=== PATIENT | female | born 1965 | race Caucasian/White ===

== ENCOUNTER → 2017-11-30 | Outpatient (CLI) | payer OTHER ==
--- NOTE | 2017-12-04 07:42 | MM ---
Reason for exam: screening (asymptomatic). Last mammogram was performed 6 years and 3 months ago. History: Patient is postmenopausal. Retro-pectoral saline implants in both breasts, 2016. Physical Findings: A clinical breast exam by your physician is recommended on an annual basis and results should be correlated with mammographic findings. MG Screening Mammo Implant/CAD Bilateral CC and MLO view(s) were taken. Prior study comparison: September 09, 2011, CAD bilateral diagnostic mammogram. September 09, 2009, bilateral digital screening mammogram. The breast tissue is heterogeneously dense. This may lower the sensitivity of mammography. Bilateral retropectoral saline implants. Ovoid focal asymmetry 2 o'clock posterior right breast appears new. ASSESSMENT: Incomplete: need additional imaging evaluation, BI-RAD 0 RECOMMENDATION: Special view mammogram of the right breast. If lesion persists on supplemental views, image directed ultrasound is recommended. [facility] will attempt to contact patient to return for supplemental views and ultrasound if indicated.
== END | disposition home or self-care (01) ==
LOC: RADMAMWWP 08:54
PROVIDERS: ATTEND Family Medicine
DX: Z12.31 Encounter for screening mammogram for malignant neoplasm of breast (principal)
CPT/HCPCS: 77067

== ENCOUNTER → 2017-12-06 | Outpatient (CLI) | payer OTHER ==
--- NOTE | 2017-12-06 09:37 | MM ---
Reason for exam: additional evaluation requested from abnormal screening. Last mammogram was performed less than 1 month ago. History: Patient is postmenopausal. Retro-pectoral saline implants in both breasts, 2016. Physical Findings: Nurse did not find any significant physical abnormalities on exam. MG 3D Work Up W/Cad W/Imp RT CC and MLO view(s) were taken of the right breast. Prior study comparison: November 30, 2017, bilateral MG screening mammo implant/CAD. September 09, 2011, CAD bilateral diagnostic mammogram. There are scattered fibroglandular densities. Area disperses on CC compression faintly present adjacent to implant on the left. These results were verbally communicated with the patient and result sheet given to the patient on 12/06/17. ASSESSMENT: Probably benign, BI-RAD 3 RECOMMENDATION: Follow-up diagnostic mammogram of the right breast in 6 months.
== END | disposition home or self-care (01) ==
LOC: RADMAMWWP 06:52
PROVIDERS: ATTEND Family Medicine
DX: R92.8 Other abnormal and inconclusive findings on diagnostic imaging of breast (principal)
CPT/HCPCS: 77065; G0279

== ENCOUNTER → 2018-06-07 | Outpatient (CLI) | payer OTHER ==
--- NOTE | 2018-06-07 10:57 | MM ---
Reason for exam: follow-up at short interval from prior study. Last mammogram was performed 6 months ago. History: Patient is postmenopausal. Retro-pectoral saline implants in both breasts, 2016. Physical Findings: Nurse did not find any significant physical abnormalities on exam. MG 3D Diag Mammo Imp W/Cad RT CC, MLO, and ML view(s) were taken of the right breast. Prior study comparison: December 06, 2017, right breast MG 3d work up w/cad w/imp RT. November 30, 2017, bilateral MG screening mammo implant/CAD. The breast tissue is heterogeneously dense. This may lower the sensitivity of mammography. Finding: There is a faint circumscribed oval mass in the anterior position of the right breast, possible lesion, persists but unchanged from November 2017 mammogram. These results were verbally communicated with the patient and result sheet given to the patient on 06/07/18. ASSESSMENT: Incomplete: need additional imaging evaluation, BI-RAD 0 RECOMMENDATION: Ultrasound of the right breast.
--- NOTE | 2018-06-07 10:58 | USB ---
Reason for exam: additional evaluation requested from abnormal screening. History: Patient is postmenopausal. Retro-pectoral saline implants in both breasts, 2016. US Breast Limited RT Right limited breast ultrasound including focal area of concern, retroareolar and axilla demonstrates a 0.4 x 0.3 x 0.5cm oval lesion too small to characterize at 1 o'clock. These results were verbally communicated with the patient and result sheet given to the patient on 06/07/18. ASSESSMENT: Probably benign, BI-RAD 3 RECOMMENDATION: Follow-up diagnostic mammogram of both breasts in 6 months. Ultrasound of the right breast in 6 months. Back on schedule.
== END ==
LOC: RADMAMWWP 09:24
PROVIDERS: ATTEND Family Medicine
DX: R92.8 Other abnormal and inconclusive findings on diagnostic imaging of breast (principal)
CPT/HCPCS: 77065; 76642; G0279; 77061

== ENCOUNTER → 2019-01-10 | Outpatient (CLI) | payer OTHER ==
--- NOTE | 2019-01-10 14:42 | USB ---
Reason for exam: additional evaluation requested from abnormal screening. History: Patient is postmenopausal. Retro-pectoral saline implants in both breasts, 2016. US Breast RT Right complete breast ultrasound includes all four quadrants, the retroareolar region and axilla. Finding demonstrates a 0.6 x 0.3 x 0.6cm lesion at 1 o'clock. These results were verbally communicated with the patient and result sheet given to the patient on 01/10/19. ASSESSMENT: Benign, BI-RAD 2 RECOMMENDATION: Follow-up diagnostic mammogram and ultrasound of the right breast in 6 months.
--- NOTE | 2019-01-15 14:53 | MM ---
Reason for exam: follow-up at short interval from prior study. Last mammogram was performed 7 months ago. History: Patient is postmenopausal. Retro-pectoral saline implants in both breasts, 2016. Physical Findings: Nurse did not find any significant physical abnormalities on exam. MG 3D Diag Mammo Imp W/Cad CHRISTINE Bilateral CC, MLO, and ID view(s) were taken. Prior study comparison: June 07, 2018, right breast MG 3d diag mammo imp w/cad RT. December 06, 2017, right breast MG 3d work up w/cad w/imp RT. The breast tissue is heterogeneously dense. This may lower the sensitivity of mammography. There is chronic nodularity in the right breast. These results were verbally communicated with the patient and result sheet given to the patient on 01/10/19. ASSESSMENT: Benign, BI-RAD 2 RECOMMENDATION: Follow-up diagnostic mammogram of the right breast in 6 months.
== END ==
LOC: RADMAMWWP 13:44
PROVIDERS: ATTEND Family Medicine
DX: R92.8 Other abnormal and inconclusive findings on diagnostic imaging of breast (principal)
CPT/HCPCS: 77066; 76641; G0279; 77062

== ENCOUNTER → 2019-09-11 | Outpatient (CLI) | payer OTHER ==
--- NOTE | 2019-09-12 13:06 | MM ---
Reason for exam: follow-up at short interval from prior study. Last mammogram was performed 8 months ago. History: Patient is postmenopausal. Retro-pectoral saline implants in both breasts, 2016. Physical Findings: Nurse did not find any significant physical abnormalities on exam. MG 3D Diag Mammo Imp W/Cad RT CC and MLO view(s) were taken of the right breast. Prior study comparison: January 10, 2019, bilateral MG 3d diag mammo imp w/cad CHRISTINE. June 07, 2018, right breast MG 3d diag mammo imp w/cad RT. No significant new findings when compared with previous films. These results were verbally communicated with the patient and result sheet given to the patient on 09/11/19. ASSESSMENT: Benign, BI-RAD 2 RECOMMENDATION: Routine screening mammogram of both breasts in 6 months. Back on schedule.
--- NOTE | 2019-09-12 13:07 | USB ---
Reason for exam: follow-up at short interval from prior study. History: Patient is postmenopausal. Retro-pectoral saline implants in both breasts, 2016. US Breast RT Right complete breast ultrasound includes all four quadrants, the retroareolar region and axilla. Finding demonstrates a 3 x 3 x 4mm oval, cystic lesion at 1 o'clock and a 4mm oval lymph node at the axillary tail. These results were verbally communicated with the patient and result sheet given to the patient on 09/11/19. ASSESSMENT: Benign, BI-RAD 2 RECOMMENDATION: Routine screening mammogram of both breasts in 6 months. Manage on a clinical basis with regard to left breast pain.
== END | disposition home or self-care (01) ==
LOC: RADMAMWWP 13:25
PROVIDERS: ATTEND Family Medicine
DX: R92.8 Other abnormal and inconclusive findings on diagnostic imaging of breast (principal)
CPT/HCPCS: 77065; 76641; G0279; 77061

== ENCOUNTER → 2019-09-24 | Outpatient (CLI) | payer OTHER ==
[2019-09-24 10:18] VITALS: BP 127/70; PULSE 78; RESP 16; TEMP 98.6
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
== END ==
LOC: WWCWWP 09:59
PROVIDERS: ATTEND Obstetrics & Gynecology
DX: Z53.9 Procedure and treatment not carried out, unspecified reason (principal)

== ENCOUNTER → 2019-09-27 | Outpatient (CLI) | payer OTHER ==
--- NOTE | 2019-09-27 08:30 | US ---
EXAMINATION TYPE: US carotid duplex BILAT DATE OF EXAM: 09/27/2019 COMPARISON: NONE CLINICAL HISTORY: R07.89 CHEST PAIN. Baseline. No HTN. EXAM MEASUREMENTS: RIGHT: Peak Systolic Velocity (PSV) cm/sec ----- Right CCA: 101.7 ----- Right ICA: 92.7 ----- Right ECA: 55.9 ICA/CCA ratio: 0.9 RIGHT: End Diastole cm/sec ----- Right CCA: 44.8 ----- Right ICA: 43.5 ----- Right ECA: 10.4 LEFT: Peak Systolic Velocity (PSV) cm/sec ----- Left CCA: 105.3 ----- Left ICA: 107.9 ----- Left ECA: 73.8 ICA/CCA ratio: 1.0 LEFT: End Diastole cm/sec ----- Left CCA: 49.7 ----- Left ICA: 47.1 ----- Left ECA: 13.6 VERTEBRALS (direction of flow): Right Vertebral: Antegrade Left Vertebral: Antegrade Rhythm: Normal No plaque, wall thickening, significant stenosis or elevated velocities visualized. IMPRESSION: Mild degree of grayscale atheromatous plaquing with no sonographically evident hemodyn amically significant stenosis within either visualized carotid arterial system. Criteria for Assigning % of Stenosis / Diameter reduction (Estimation based on the indirect measurements of the internal carotid artery velocities (ICA PSV). 1. Normal (no stenosis)=ICA PSV < 125 cm/s: ratio < 2.0: ICA EDV<40 cm/s. 2. Less than 50% stenosis=ICA PSV < 125 cm/s: ratio < 2.0: ICA EDV<40 cm/s. 3. 50 to 69% stenosis=ICA PSV of 125 to 230 cm/s: ration 2.0 ? 4.0: ICA EDV 40-100 cm/s. 4. Greater than 70% stenosis to near occlusion= ICA PSV > 230 cm/s: ratio > 4.0: ICA EDV > 100 cm/s. 5. Near occlusion= ICA PSV velocities may be low or undetectable: variable ratio and ICA EDV. 6. Total occlusion=unable to detect flow.
--- NOTE | 2019-09-27 10:18 | BD ---
EXAMINATION TYPE: Axial Bone Density DATE OF EXAM: 09/27/2019 COMPARISON: NONE CLINICAL HISTORY: Z 78.0 Height: 5 FT 3 IN Weight: 115 FRAX RISK QUESTIONS: Alcohol (3 or more units per day): NO Family History (Parent hip fracture): NO Glucocorticoids (More than 3mos): NO (Ex: prednisone, prednisolone, methylprednisolone, dexamethasone, and hydrocortisone). History of Fracture in Adulthood: NO Secondary Osteoporosis: 1. Type 1 Diabetes: NO 2. Hyperthyroidism: NO 3. Menopause before 45: NO 4. Malnutrition: NO 5. Chronic liver disease: NO Rheumatoid Arthritis: NO Current Tobacco Use: NO RISK FACTORS HISTORY OF: Active: YES Postmenopausal woman: AGE 47 MEDICATIONS: Additional Medications: CURRENTLY ON ANTIBIOTICS FOR SINUS INF Additional History: HISTORY OF LYME DIEASE EXAM MEASUREMENTS: Bone mineral densitometry was performed using the [employer] System. Bone mineral density as measured about the Lumbar spine is: ----- L1-L4(G/cm2): 1.259 T Score Values are as follows: ----- L2: 0.6 ----- L3: 1.0 ----- L4: 0.9 ----- L1-L4: 0.7 BASELINE Bone mineral density about the R hip (g/cm2): 0.753 Bone mineral density about the L hip (g/cm2): 0.768 T Score values are as follows: -----R Neck: -2.0 -----L Neck: -1.9 -----R Total: -1.6 -----L Total: -1.6 BASELINE IMPRESSION: Osteopenia (T Score between -2.5 and -1). There is slightly increased risk of fracture and the patient may be considered for treatment. Re-Screen 2-5 years. NOTE: T-SCORE=SD OF THE YOUNG ADULT MEAN.
--- NOTE | 2019-10-02 07:17 | EST ---
EXERCISE STRESS AGE: 53 SEX: F HT: 63" WT: 115 PROTOCOL: Stress Test STAGE: 3 DURATION OF EXERCISE: 9:00 HEART RATE REST: 64 BLOOD PRESSURE REST: 105/79 MAXIMUM HEART RATE ACHIEVED: 149 MAXIMUM BLOOD PRESSURE: 141/65 85% MPHR: 141 100% MPHR: 166 METS: 10.3 INDICATIONS: Chest pain. CLINICAL INFORMATION: Baseline EKG revealed normal sinus rhythm without significant ST changes. Patient walked on a standard Bret protocol for a total duration of 9 minutes, achieved a maximal heart rate of 149 beats per minute which is more than 85% of predicted maximum. Developed fatigue and shortness of breath. She did not have any angina or arrhythmia. EKG did not reveal any ST-segment changes to indicate ischemia. This is a negative stress test with fair exercise capacity. FINAL IMPRESSION: 1. Fair exercise capacity. Negative stress test by EKG criteria. 2. Patient did not have any angina or arrhythmia EKG changes to indicate ischemia. MMISISL / ANITAN: [id number] /
== END | disposition home or self-care (01) ==
LOC: RADBDWWP 07:03
PROVIDERS: ATTEND Family Medicine
DX: R07.89 Other chest pain (principal); I65.23 Occlusion and stenosis of bilateral carotid arteries; M85.80 Other specified disorders of bone density and structure, unspecified site; Z78.0 Asymptomatic menopausal state
CPT/HCPCS: 77080; 93017; 93880

== ENCOUNTER → 2020-03-27 | Outpatient (CLI) | payer OTHER ==
--- NOTE | 2020-03-30 10:38 | MM ---
Reason for exam: screening (asymptomatic). Last mammogram was performed 7 months ago. History: Patient is postmenopausal. Retro-pectoral saline implants in both breasts, 2016. Physical Findings: A clinical breast exam by your physician is recommended on an annual basis and results should be correlated with mammographic findings. MG 3D Screen Mammo Imp/Cad Bilateral CC, MLO, and ID view(s) were taken. Prior study comparison: September 11, 2019, right breast MG 3d diag mammo imp w/cad RT. January 10, 2019, bilateral MG 3d diag mammo imp w/cad CHRISTINE. The breast tissue is heterogeneously dense. This may lower the sensitivity of mammography. Stable bilateral implants. No significant changes when compared with prior studies. ASSESSMENT: Benign, BI-RAD 2 RECOMMENDATION: Routine screening mammogram of both breasts in 1 year.
== END | disposition home or self-care (01) ==
LOC: RADMAMWWP 13:33
PROVIDERS: ATTEND Family Medicine
DX: Z12.31 Encounter for screening mammogram for malignant neoplasm of breast (principal)
CPT/HCPCS: 77063; 77067

== ENCOUNTER → 2022-07-01 | Outpatient (CLI) | payer OTHER ==
--- NOTE | 2022-07-04 10:18 | BD ---
EXAMINATION TYPE: Axial Bone Density DATE OF EXAM: 07/01/2022 COMPARISON: 09/27/2019 CLINICAL HISTORY: 56 years old Female. ICD-10 CODE: Z78.0 Asymptomatic menopausal state Height: 63 Weight: 118 FRAX RISK QUESTIONS: Alcohol (3 or more units per day): NO Family History (Parent hip fracture): NO Glucocorticoids (More than 3mos): NO (Ex: prednisone, prednisolone, methylprednisolone, dexamethasone, and hydrocortisone). History of Fracture in Adulthood: NO Secondary Osteoporosis: NO Rheumatoid Arthritis: NO Current Tobacco Use: NO RISK FACTORS HISTORY OF: Family History of Osteoporosis: NO Active: YES Diet low in dairy products/other sources of calcium: YES Postmenopausal woman: YES Take estrogen and/or progesterone medications: NO Lost more than 2 inches in height since high school: NO MEDICATIONS: Additional Medications: YES VIT D EXAM MEASUREMENTS: Bone mineral densitometry was performed using the [employer] System. Bone mineral density as measured about the Lumbar spine is: ----- L1-L4(G/cm2): 1.195 T Score Values are as follows: ----- L1: -0.8 ----- L2: 0.0 ----- L3: 0.4 ----- L4: 0.5 ----- L1-L4: 0.1 Bone mineral density has: Decreased -5.0% since study of: 09/27/2019 Bone mineral density about the R hip (g/cm2): 0.717 Bone mineral density about the L hip (g/cm2): 0.748 T Score values are as follows: -----R Neck: -2.3 -----L Neck: -2.1 -----R Total: -1.9 -----L Total: -1.6 Bone mineral density has: Decreased -2.4% since study of: 09/27/2019 FRAX%s: The graph provided illustrates a 9.0% chance for a major osteoporotic fx and a 1.5% chance fo r the hips probability for fx in 10 years time. IMPRESSION: Osteopenia (T Score between -2.5 and -1). There is slightly increased risk of fracture and the patient may be considered for treatment. Re-Screen 2-5 years. NOTE: T-SCORE=SD OF THE YOUNG ADULT MEAN.
== END | disposition home or self-care (01) ==
LOC: RADMAMWWP 14:21
PROVIDERS: ATTEND Family Medicine
DX: M85.89 Other specified disorders of bone density and structure, multiple sites (principal); Z78.0 Asymptomatic menopausal state
CPT/HCPCS: 77080

== ENCOUNTER 2023-02-24 16:25 | Emergency (ER) | payer OTHER ==
[2023-02-24 16:47] VITALS: RESP 18; TEMP 99.6
--- NOTE | 2023-02-24 17:12 | ED ---
Abdominal Pain HPI - General Chief Complaint: Abdominal Pain Stated Complaint: Vaginal pain Time Seen by Provider: 02/24/23 16:49 Source: patient Mode of arrival: ambulatory - History of Present Illness Initial Comments: 57-year-old female with no significant past medical history presents to ED with chief complaint of pelvic pain. She states that she woke up today with a sudden onset of pain over her pubis with a soft "squishy" mass over it. She states pain is dull in nature however reports upon touching it becomes very sharp. Patient states pain is currently a 5/10 in severity. Pain worse with movements No changes in bowel movements. Patient states a week ago onset of back pain and thought that she may have had a UTI and reports that she has been drinking more water. Reports urinary frequency however no dysuria, no hematuria. Denies vag inal bleeding, vaginal discharge. Patient states that she saw her PCP who advised her to present to the ED for further evaluation. 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 No other complaints - Related Data Home Medications Medication Instructions Recorded Confirmed Cyanocobalamin [Vitamin B-12] 500 mcg PO DAILY 09/24/19 09/24/19 Multivitamin [Multivitamins Adult 1 each PO DAILY 09/24/19 09/24/19 Gummies] Allergies Allergy/AdvReac Type Severity Reaction Status Date / Time codeine AdvReac Nausea Verified 02/24/23 21:50 Review of Systems ROS Statement: Those systems with pertinent positive or pertinent negative responses have been documented in the HPI. ROS Other: All systems not noted in ROS Statement are negative. Past Medical History Past Medical History: Hyperlipidemia Additional Past Medical History / Comment(s): Lines disease in the past. 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 History of Any Multi-Drug Resistant Organisms: None Reported Past Surgical History: Section, Tubal Ligation Additional Past Surgical History / Comment(s): Bilateral saline implants. section for twins. Colonoscopy 2011. Past Psychological History: No Psychological Hx Reported Smoking Status: Former smoker Past Alcohol Use History: Rare Past Drug Use History: None Reported - Past Family History Mother Family Medical History: Congestive Heart Failure (CHF), Coronary Artery Disease (CAD), CVA/TIA Father Family Medical History: Cancer, Coronary Artery Disease (CAD) Additional Family Medical History / Comment(s): Non-Hodgkin's lymphoma and aortic aneurysm. General Exam Limitations: no limitations General appearance: alert, in no apparent distress Head exam: Present: atraumatic, normocephalic Eye exam: Present: normal appearance ENT exam: Present: normal exam Neck exam: Present: normal inspection Respiratory exam: Present: normal lung sounds bilaterally Cardiovascular Exam: Present: regular rate, normal rhythm GI/Abdominal exam: Present: soft (Nontender to palpation. No rebound guarding or rigidity.), normal bowel sounds External exam: Present: other (Soft mass over the left side of the pubis. No overlying skin changes) Back exam: Present: normal inspection Neurological exam: Present: alert, oriented X3 Psychiatric exam: Present: normal affect, normal mood Skin exam: Present: warm, dry Course Vital Signs 02/24/23 02/24/23 16:39 20:48 Temperature 99.6 F Pulse Rate 92 65 Respiratory 18 18 Rate Blood Pressure 135/80 141/79 O2 Sat by Pulse 98 98 Oximetry Medical Decision Making - Medical Decision Making Was pt. sent in by a medical professional or institution (, PA, [employer], urgent care, hospital, or jail...) When possible be specific @ -No Did you speak to anyone other than the patient for history (EMS, parent, family, police, friend...)? What history was obtained from this source @ -No Did you review nursing and triage notes (agree or disagree)? Why? @ -I reviewed and agree with nursing and triage notes Were old charts reviewed (outside hosp., previous admission, EMS record, old EKG, old radiological studies, urgent care reports/EKG's, jail records)? Report findings @ -No old charts were reviewed Differential Diagnosis (chest pain, altered mental status, abdominal pain women, abdominal pain men, vaginal bleeding, weakness, fever, dyspnea, syncope, headache, dizziness, GI bleed, back pain, seizure, CVA, palpatations, mental health, musculoskeletal)? @ -MDM differential abdominal pain women EKG interpreted by me (3pts min.). @ -As above X-rays interpreted by me (1pt min.). @ -None done CT interpreted by me (1pt min.). @ -CT showed inguinal hernia consisting of fat with no bowel U/S interpreted by me (1pt. min.). @ -Pelvic ultrasound showed no acute findings What testing was considered but not performed or refused? (CT, X-rays, U/S, labs)? Why? @ -None What meds were considered but not given or refused? Why? @ -None Did you discuss the management of the patient with other professionals (professionals i.e. , PA, [employer], lab, RT, psych nurse, director of social media marketing, rap artist, teacher, community chest officer, case monitor)? Give summary @ -No Was smoking cessation discussed for >3mins.? @ -No Was critical care preformed (if so, how long)? @ -No Were there social determinants of health that impacted care today? How? (Homelessness, low income, unemployed, alcoholism, drug addiction, transportation, low edu. Level, literacy, decrease access to med. care, half-way, rehab)? @ -No Was there de-escalation of care discussed even if they declined (Discuss DNR or withdrawal of care, Hospice)? DNR status @ -No What co-morbidities impacted this encounter? (DM, HTN, Smoking, COPD, CAD, Cancer, CVA, ARF, Chemo, Hep., AIDS, mental health diagnosis, sleep apnea, morbid obesity)? @ -None Was patient admitted / discharged? Hospital course, mention meds given and route, prescriptions, significant lab abnormalities, going to OR and other pertinent info. @ -Discharge. Laboratory studies unremarkable The CT showed an inguinal hernia measuring approximately 2.9 x 2.2 cm containing small amount of fluid and fat however no bowel. She had hernia reduced at bedside. Will be discharged home with follow-up to surgery. Discussed return cautions with patient who verbalizes agreement. Undiagnosed new problem with uncertain prognosis? @ -No Drug Therapy requiring intensive monitoring for toxicity (Heparin, Nitro, Insulin, Cardizem)? @ -No Were any procedures done? @ -Yes, hernia reduction please see Dr. Resendez's procedure note further details Diagnosis/symptom? @ -Inguinal hernia Acute, or Chronic, or Acute on Chronic? @ -Acute Uncomplicated (without systemic symptoms) or Complicated (systemic symptoms)? @ -Uncomplicated Side effects of treatment? @ -No Exacerbation, Progression, or Severe Exacerbation? @ -No Poses a threat to life or bodily function? How? (Chest pain, [place], [place], pneumonia, PE, COPD, DKA, ARF, appy, cholecystitis, CVA, Diverticulitis, Homicidal, Suicidal, threat to staff... and all critical care pts) @ -Yes, rule out strangulate hernia - Lab Data Result diagrams: 02/24/23 17:27 02/24/23 17:27 Lab Results 02/24/23 02/24/23 02/24/23 Range/Units 17:27 17:27 17:27 WBC 5.6 (3.8-10.6) k/uL RBC 4.29 (3.80-5.40) m/uL Hgb 13.7 (11.4-16.0) gm/dL Hct 41.2 (34.0-46.0) % MCV 95.9 (80.0-100.0) fL MCH 31.9 (25.0-35.0) pg MCHC 33.3 (31.0-37.0) g/dL RDW 12.3 (11.5-15.5) % Plt Count 270 (150-450) k/uL MPV 7.1 Neutrophils % 55 % Lymphocytes % 34 % Monocytes % 7 % Eosinophils % 2 % Basophils % 1 % Neutrophils # 3.1 (1.3-7.7) k/uL Lymphocytes # 1.9 (1.0-4.8) k/uL Monocytes # 0.4 (0-1.0) k/uL Eosinophils # 0.1 (0-0.7) k/uL Basophils # 0.0 (0-0.2) k/uL Sodium 134 L (137-145) mmol/L Potassium 3.9 (3.5-5.1) mmol/L Chloride 104 (98-107) mmol/L Carbon Dioxide 23 (22-30) mmol/L Anion Gap 7 mmol/L BUN 12 (7-17) mg/dL Creatinine 0.59 (0.52-1.04) mg/dL Est GFR (CKD-EPI)AfAm >90 (>60 ml/min/1.73 sqM) Est GFR (CKD-EPI)NonAf >90 (>60 ml/min/1.73 sqM) Glucose 132 H (74-99) mg/dL Plasma Lactic Acid Neal (0.7-2.0) mmol/L Calcium 9.1 (8.4-10.2) mg/dL Total Bilirubin 0.7 (0.2-1.3) mg/dL AST 25 (14-36) U/L ALT 18 (4-34) U/L Alkaline Phosphatase 55 (38-126) U/L Total Protein 7.0 (6.3-8.2) g/dL Albumin 4.4 (3.5-5.0) g/dL Amylase 54 (30-110) U/L Lipase 68 (23-300) U/L Urine Color Yellow Urine Appearance Clear (Clear) Urine pH 6.0 (5.0-8.0) Ur Specific Commodore 1.018 (1.001-1.035) Urine Protein Negative (Negative) Urine Glucose (UA) Negative (Negative) Urine Ketones 1+ H (Negative) Urine Blood Negative (Negative) Urine Nitrite Negative (Negative) Urine Bilirubin Negative (Negative) Urine Urobilinogen <2.0 (<2.0) mg/dL Ur Leukocyte Esterase Moderate H (Negative) Urine RBC 2 (0-5) /hpf Urine WBC 3 (0-5) /hpf Ur Squamous Epith Cells 4 (0-4) /hpf Urine Mucus Rare H (None) /hpf 02/24/23 Range/Units 18:56 WBC (3.8-10.6) k/uL RBC (3.80-5.40) m/uL Hgb (11.4-16.0) gm/dL Hct (34.0-46.0) % MCV (80.0-100.0) fL MCH (25.0-35.0) pg MCHC (31.0-37.0) g/dL RDW (11.5-15.5) % Plt Count (150-450) k/uL MPV Neutrophils % % Lymphocytes % % Monocytes % % Eosinophils % % Basophils % % Neutrophils # (1.3-7.7) k/uL Lymphocytes # (1.0-4.8) k/uL Monocytes # (0-1.0) k/uL Eosinophils # (0-0.7) k/uL Basophils # (0-0.2) k/uL Sodium (137-145) mmol/L Potassium (3.5-5.1) mmol/L Chloride (98-107) mmol/L Carbon Dioxide (22-30) mmol/L Anion Gap mmol/L BUN (7-17) mg/dL Creatinine (0.52-1.04) mg/dL Est GFR (CKD-EPI)AfAm (>60 ml/min/1.73 sqM) Est GFR (CKD-EPI)NonAf (>60 ml/min/1.73 sqM) Glucose (74-99) mg/dL Plasma Lactic Acid Neal 1.0 (0.7-2.0) mmol/L Calcium (8.4-10.2) mg/dL Total Bilirubin (0.2-1.3) mg/dL AST (14-36) U/L ALT (4-34) U/L Alkaline Phosphatase (38-126) U/L Total Protein (6.3-8.2) g/dL Albumin (3.5-5.0) g/dL Amylase (30-110) U/L Lipase (23-300) U/L Urine Color Urine Appearance (Clear) Urine pH (5.0-8.0) Ur Specific Commodore (1.001-1.035) Urine Protein (Negative) Urine Glucose (UA) (Negative) Urine Ketones (Negative) Urine Blood (Negative) Urine Nitrite (Negative) Urine Bilirubin (Negative) Urine Urobilinogen (<2.0) mg/dL Ur Leukocyte Esterase (Negative) Urine RBC (0-5) /hpf Urine WBC (0-5) /hpf Ur Squamous Epith Cells (0-4) /hpf Urine Mucus (None) /hpf - EKG Data EKG Comments: Shows a sinus rhythm with acute ST or T-wave changes at a rate of 61 bpm. [place] 169, QRS 80, QT/QTc 396/399. Disposition Clinical Impression: Inguinal hernia Disposition: HOME SELF-CARE Condition: Good Instructions (If sedation given, give patient instructions): Inguinal Hernia (ED) Additional Instructions: Please return to the Emergency Department if symptoms worsen or any other concerns. Is patient prescribed a controlled substance at d/c from ED?: No Referrals: Kia Vincent DO [Primary Care Provider] - 1-2 days Alysha Carballo DO [Doctor of Osteopathic Medicine] - 1-2 days Time of Disposition: 21:50
[2023-02-24 17:47] LABS: Appearance,Urine Clear (Clear); Bilirubin,Urine Negative (Negative); Blood,Urine Negative (Negative); Color,Urine Yellow; Glucose,Urine (UA) Negative (Negative); Ketones,Urine 1+ (Negative); Leukocyte Esterase,Urine Moderate (Negative); Mucus,Urine Rare /hpf; Nitrite,Urine Negative (Negative); Protein,Urine Negative (Negative); RBC,Urine 2 /hpf (0-5); Specific Gravity,Urine 1.018 (1.001-1.035); Squamous Epithelial Cell,Urine 4 /hpf (0-4); Urobilinogen,Urine <2.0 mg/dL (<2.0); WBC,Urine 3 /hpf (0-5)
[2023-02-24 17:49] LABS: Basophils % (A) 1 %; Eosinophils # (A) 0.1 k/uL (0-0.7); Eosinophils % (A) 2 %; HCT 41.2 % (34.0-46.0); HGB 13.7 gm/dL (11.4-16.0); Lymphocytes # (A) 1.9 k/uL (1.0-4.8); Lymphocytes % (A) 34 %; MCH 31.9 pg (25.0-35.0); MCHC 33.3 g/dL (31.0-37.0); MCV 95.9 fL (80.0-100.0); Mean Platelet Volume 7.1; Monocytes # (A) 0.4 k/uL (0-1.0); Monocytes % (A) 7 %; Neutrophils # (A) 3.1 k/uL (1.3-7.7); Neutrophils % (A) 55 %; Platelet Count 270 k/uL (150-450); RBC 4.29 m/uL (3.80-5.40); RDW 12.3 % (11.5-15.5); WBC 5.6 k/uL (3.8-10.6)
[2023-02-24 17:57] LABS: ALT 18 U/L (4-34); AST 25 U/L (14-36); African American GFR (CKD) >90 (>60 ml/min/1.73 sqM); Albumin 4.4 g/dL (3.5-5.0); Alkaline Phosphatase 55 U/L (38-126); Amylase 54 U/L (30-110); Anion Gap 7 mmol/L; Blood Urea Nitrogen 12 mg/dL (7-17); Calcium 9.1 mg/dL (8.4-10.2); Carbon Dioxide 23 mmol/L (22-30); Chloride 104 mmol/L (98-107); Glucose 132 mg/dL (74-99); Lipase 68 U/L (23-300); Non-African American GFR(CKD) >90 (>60 ml/min/1.73 sqM); Potassium 3.9 mmol/L (3.5-5.1); Sodium 134 mmol/L (137-145); Total Bilirubin 0.7 mg/dL (0.2-1.3)
--- NOTE | 2023-02-24 18:27 | US ---
EXAMINATION TYPE: US pelvic complete DATE OF EXAM: 02/24/2023 COMPARISON: NONE CLINICAL INDICATION: Female, 57 years old with history of r/o incarcerated femoral hernia/pelvic mass ; left suprapubic/left groin pain and edema TECHNIQUE: Transabdominal (TA). Date of LMP: unknown EXAM MEASUREMENTS: Uterus: 6.3 x 3.3 x 3.8 cm Endometrial Stripe: 0.4 cm Right Ovary: unable to visualize Left Ovary: 2.2 x 1.7 x 1.0 cm 1. Uterus: Anteverted 2. Endometrium: appears wnl 3. Right Ovary: Obscured by overlying bowel gas 4. Left Ovary: appears wnl 5. Bilateral Adnexa: large amount of peristalsing bowel 6. Posterior cul-de-sac: wnl scanned within patient's area of concern, left suprapubic/left groin area, unable to identify an ab normality with ultrasound at this time. ?recommend other modality. Normal appearing Lymph node left g roin = 1.3 x 0.5 x 0.9cm IMPRESSION: No discrete abnormality seen.
[2023-02-24] MEDS ORDERED: IOPAMIDOL CONTRAST (ORAL USE) VIAL PO PRN (18:49)
[2023-02-24 20:49] VITALS: BP 141/79; PULSE 65
--- NOTE | 2023-02-24 20:50 | CT ---
EXAMINATION TYPE: CT abdomen pelvis w con DATE OF EXAM: 02/24/2023 COMPARISON: none HISTORY: pelvic/vaginal pain, swelling to left anterior side of pelvis CT DLP: 543.1 mGycm CONTRAST: CT scan of the abdomen and pelvis is performed with Oral Contrast and with IV Contrast, patient injec noe with 100 mL of Isovue 300. FINDINGS: LUNG BASES-: No visible nodule. No infiltrate. LIVER/GB: No calcified gallstones. No space occupying hepatic lesion. Biliary tree is of normal ca liber. PANCREAS: No inflammation. No distinct mass. SPLEEN: No splenic enlargement. No lesion seen. ADRENALS: No nodule. No thickening. KIDNEYS/BLADDER: No hydronephrosis. No nephrolithiasis. No distinct renal mass. Urinary bladder g rossly unremarkable. BOWEL: Normal appendix. Normal bowel caliber. No inflammation. Sigmoid diverticulosis without diver ticulitis. GENITAL ORGANS: No gross abnormality. LYMPH NODES: No greater than 1cm abdominal or pelvic lymph nodes are appreciated. There are a few sm all bilateral subcentimeter inguinal lymph nodes seen. AORTA: No significant abnormality. OSSEOUS STRUCTURES: No significant abnormality is seen. OTHER: There is left inguinal hernia measuring approximately 2.9 x 2.2 cm which contains a small amou nt of fluid and fat with no bowel. IMPRESSION: 1. There is left inguinal hernia measuring approximately 2.9 x 2.2 cm which contains a small amount o f fluid and fat with no bowel.
[2023-02-24] MEDS ORDERED: IBUPROFEN 600 MG STARTER PACK 4 TAB BTL PO STA (21:48)
== END 2023-02-24 22:10 | disposition home or self-care (01) ==
LOC: EC 16:25 → SUPCPDRO 16:25 → EC 22:10
DX: K40.90 Unilateral inguinal hernia, without obstruction or gangrene, not specified as recurrent (principal); Z87.891 Personal history of nicotine dependence; Z88.5 Allergy status to narcotic agent
CPT/HCPCS: 36415; 80053; 82150; 83605; 83690; 85025; 81001; 76856; 74177; 99284; Q9967